=== PATIENT | male | born 2000 | race Caucasian/White ===

== ENCOUNTER 2022-06-17 11:21 | Emergency (ER) | payer BC, SELFPAY ==
[2022-06-17 11:28] VITALS: BP 131/82; PULSE 108; RESP 18; TEMP 37.3; O2SAT 96; BMI 27.1
--- NOTE | 2022-06-17 11:34 | ED.GENADULT ---
HPI - General Adult General Time Seen by Provider: 11:35 Date Seen: 06/17/22 Chief complaint: Abdominal Pain Stated complaint: Abdominal pain Time Seen by Provider: 06/17/22 11:25 Source: patient Mode of arrival: ambulatory Limitations: no limitations History of Present Illness HPI narrative: 22-year-old male who comes in today complaining of abdominal pain. Patient drinks alcohol daily but over the weekend increased alcohol intake. Two nights ago he started having vomiting, initially clear but then with some blood. That resolved yesterday but patient has had continued generalized abdominal pain. He describes this as cramping. It is worse when he moves or stands. He has had some lightheadedness as well. No black stools or diarrhea. Has not taken anything for his symptoms. Treatments prior to arrival: none Related Data Previous Rx's Medication Instructions Recorded sucralfate 1 gram tablet (Carafate) 1 g PO QID #30 tabs 06/17/22 Allergies Allergy/AdvReac Type Severity Reaction Status Date / Time No Known Drug Allergies Allergy Verified 06/17/22 11:31 Review of Systems Status of ROS: Reports: 10 or more systems reviewed and unremarkable except as noted in History and below PFSH PFS Social History Smoking Status: Never smoker Do you use any of these nicotine containing products: None How often do you have a drink containing alcohol: never AUDIT-C Alcohol total score: 0 Non-prescribed substance use: denies use Exam Narrative: Exam Narrative: General: Well-developed and well-nourished, no acute distress Head: Atraumatic and normocephalic Eyes: Pupils are equal reactive, extraocular motions intact, conjunctiva clear ENT: External nose and ears are normal, posterior pharynx without erythema or exudate Neck: No midline cervical tenderness, full spontaneous range of motion the neck, trachea midline, no adenopathy Heart: Regular rate and rhythm no murmurs or thrills Lungs: Clear to auscultation bilaterally without wheezes or crackles Abdomen: Soft, hyperactive bowel sounds with generalized tenderness worse in the epigastrium and left upper quadrant Musculoskeletal: No tenderness, deformity, or edema Neurologic: Awake, alert, and oriented x3, no gross focal neurologic deficits, cranial nerves intact as tested Psych: Mood and affect are appropriate Skin: No rashes Const: Vital Signs, click to edit/add: Vital Signs - 24 hr 06/17/22 11:28 Temperature 99.1 F Pulse Rate [Right Pulse Oximeter] 108 H Respiratory Rate 18 Blood Pressure [Ri ght Upper Arm] 131/82 Pulse Oximetry 96 Oxygen Delivery Me thod Room Air Course Course Hospital Course: Patient seen and examined, prior records reviewed. Differential diagnosis includes but not limited to gastritis, pancreatitis, gastric ulcer, enteritis, bowel obstruction. Patient presents with vomiting and generalized abdominal pain after heavy alcohol intake. On exam here, generalized abdominal tenderness with no right lower quadrant tenderness, no right upper quadrant tenderness. Tenderness is worse in the epigastrium and left upper quadrant. This likely represents gastritis, pancreatitis not excluded. Patient is mildly tachycardic which may be dehydration, with hematemesis concern for anemia. No known history of varices. CT scan of the abdomen and pelvis is ordered along with IV fluids and labs. Reevaluation(s) Reevaluation #1: Labs personally reviewed and interpreted by me did not demonstrate any acute abnormality other than minimally elevated bilirubin. CT scan personally reviewed and interpreted by me does not demonstrate any acute abnormality. Time: 12:52 Reevaluation #2: Radiology interpretation CT with peripancreatic stranding along the tail without ductal dilatation suggestive of possible pancreatitis. However, lipase is normal and no evidence for biliary obstruction. Possible mild pancreatitis but patient is tolerating oral intake, pain is controlled Toradol and stable for discharge. Time: 14:02 Vital Signs Vital signs: Initial Vital Signs Temperature 99.1 F 06/17/22 11:28 Temperature Source Temporal Artery Scan 06/17/22 11:28 Pulse Rate 108 H 06/17/22 11:28 Respiratory Rate 18 06/17/22 11:28 Blood Pressure 131/82 06/17/22 11:28 Blood Pressure Mean 98 06/17/22 11:28 Blood Pressure Position Sitting 06/17/22 11:28 Pulse Oximetry 96 06/17/22 11:28 Oxygen Delivery Method 06/17/22 11:28 Vital Signs Temperature 99.1 F 06/17/22 11:28 Pulse Rate 108 H 06/17/22 11:28 Respiratory Rate 18 06/17/22 11:28 Blood Pressure 131/82 06/17/22 11:28 Pulse Oximetry 96 06/17/22 11:28 Oxygen Delivery Method 06/17/22 11:28 Temperature 99.1 F 06/17/22 11:28 Pulse Rate 108 H 06/17/22 11:28 Respiratory Rate 18 06/17/22 11:28 Blood Pressure 131/82 06/17/22 11:28 Pulse Oximetry 96 06/17/22 11:28 Oxygen Delivery Method 06/17/22 11:28 Medical Decision Making Medical Records Medical records reviewed: Yes I reviewed the patient's medical records Lab Data Lab results reviewed: Yes I reviewed the patient's lab results Labs: Lab Results 06/17/22 06/17/22 06/17/22 Range/Units 12:10 12:10 12:10 WBC 10.99 (4.50-11.00) K/uL RBC 5.41 (4.30-5.90) m/uL Hgb 16.4 (13.5-17.5) gm/dL Hct 49.2 (37.0-53.0) % MCV 91 (80-100) fL MCH 30 (26-34) pg MCHC 33 (32-36) gm/dL RDW Coeff of Latia 13.1 (11.5-15.5) % Plt Count 163 (140-440) K/uL Neut % (Auto) 78.3 H (42.0-72.0) % Lymph % (Auto) 11.4 L (20-44) % [place] % (Auto) 9.2 (0.0-11.0) % Eos % (Auto) 0.5 (0.0-7.0) % Baso % (Auto) 0.1 (0.0-3.0) % Neut # (Auto) 8.60 H (1.7-7.0) K/uL Lymph # (Auto) 1.30 (0.90-2.90) K/uL [place] # (Auto) 1.00 H (0.00-0.90) K/UL Eos # (Auto) 0.06 (0.00-0.50) K/uL Baso # (Auto) 0.01 (0.00-0.30) K/uL Abs Immat Gran (auto) 0.05 (0.00-0.30) K/uL Imm/Tot Granulo (auto) 0.5 % INR 1.08 (0.91-1.10) Sodium 139 (135-149) mmol/L Potassium 3.6 (3.6-5.1) mmol/L Chloride 101 (96-114) mmol/L Carbon Dioxide 30 (20-32) mmol/L BUN 18 (5-24) mg/dL Creatinine 1.0 (0.5-1.5) mg/dL Estimated Creat Clear 128.26 Estimated GFR 110 ml/min Glucose 88 (60-115) mg/dL Calcium 9.7 (8.4-10.6) mg/dL Total Bilirubin 1.6 H (0.1-1.5) mg/dL Direct Bilirubin 0.1 (0.0-0.5) mg/dL AST 21 (12-35) U/L ALT 20 (4-50) U/L Alkaline Phosphatase 50 (40-150) U/L Total Protein 7.6 (6.0-8.3) g/dL Albumin 5.0 (3.3-5.0) g/dL Lipase 84 (23-300) U/L Imaging Data CT scan - abdomen: Attestation: I have reviewed the pertinent imaging results. My impression: No acute intra-abdominal findings Radiologist's impression: IMPRESSION: Findings suggestive of pancreatitis. Consider correlation with serum lipase, if not already performed. Discharge Plan Discharge Clinical Impression: Acute alcoholic gastritis with hemorrhage, Pancreatitis Patient Disposition: Home, Self-Care Condition: Stable Instructions: Gastritis (DC), Pancreatitis (ED) Additional Instructions: Take medications as prescribed. You can start taking Protonix daily as well. Avoid alcohol until your symptoms are resolved. You may notice black or dark colored stools in the next couple of days. This is normal and will resolve on its own. Activity Level: No Restrictions Discharge Diet: Regular Prescriptions: New sucralfate [Carafate] 1 gram tablet 1 g PO QID Qty: 30 0RF Follow Up/Referrals: Tristen Muller MD [Primary Care Provider] - Stand Alone Forms: [employer] Info Instructions
--- NOTE | 2022-06-17 11:45 | CRLHL7_ITS ---
For Patients: As a result of the Century Cures Act, medical imaging exams and procedure reports are released immediately into your electronic medical record. You may view this report before your referring provider. If you have questions, please contact your health care provider. INDICATION: Abdominal pain. TECHNIQUE: CT abdomen and pelvis acquired with 98 mL Isovue 370 IV contrast. Coronal and sagittal reformats were generated. COMPARISON: None. FINDINGS: Lower chest: Unremarkable. Liver: Unremarkable. Gallbladder and bile ducts: Unremarkable. No stones or inflammation. No biliary dilation. Spleen: Unremarkable. Pancreas: Peripancreatic stranding along the tail extends superiorly along the lesser curvature. No ductal dilation. Adrenal glands: Unremarkable. No nodules. Kidneys and Ureters: Unremarkable. No suspicious masses, stones, or hydronephrosis. Lymph Nodes and Retroperitoneum: Unremarkable. Vasculature: Unremarkable. GI tract: Unremarkable. Normal in caliber. Normal appendix. Peritoneum/Abdominal Wall: Trace free fluid in the pelvis. No free air. Pelvic Viscera: Unremarkable. Bladder: Unremarkable. Bones: Unremarkable for age. IMPRESSION: Findings suggestive of pancreatitis. Consider correlation with serum lipase, if not already performed. Please note that all CT scans at this facility use dose modulation, iterative reconstruction, and/or weight-based dosing when appropriate to reduce radiation dose to as low as reasonably achievable. Dictated by Henry Lucero MD @ 06/17/2022 1:42:16 PM (Electronically Signed)
[2022-06-17] MEDS: PANTOPRAZOLE SODIUM 40 MG INJ IVP (12:19)
[2022-06-17] MEDS: 0.9 % SODIUM CHLORIDE 1000 ml 1,000 ML IV (12:19)
[2022-06-17 12:20] LABS: Basophils Absolute Auto 0.01 K/uL (0.00-0.30); Basophils Percent Auto 0.1 % (0.0-3.0); Eosinophils Absolute Auto 0.06 K/uL (0.00-0.50); Eosinophils Percent Auto 0.5 % (0.0-7.0); Hematocrit 49.2 % (37.0-53.0); Hemoglobin* 16.4 gm/dL (13.5-17.5); Immature Granulocytes Abs Auto 0.05 K/uL (0.00-0.30); Immature Granulocytes Pct Auto 0.5 %; Lymphocytes Percent Auto 11.4 % (20-44); Mean Corpuscular HGB Conc 33 gm/dL (32-36); Mean Corpuscular Hemoglobin 30 pg (26-34); Mean Corpuscular Volume 91 fL (80-100); Monocytes Percent Auto 9.2 % (0.0-11.0); Neutrophils Percent Auto 78.3 % (42.0-72.0); Platelet Count* 163 K/uL (140-440); RDW Coefficient of Variation % 13.1 % (11.5-15.5); Red Blood Count 5.41 m/uL (4.30-5.90); White Blood Count* 10.99 K/uL (4.50-11.00)
[2022-06-17 12:27] LABS: Slide Review Reflex No
[2022-06-17 12:39] LABS: Chloride* 101 mmol/L (96-114); INR 1.08 (0.91-1.10); Potassium* 3.6 mmol/L (3.6-5.1); Prothrombin Time 14.6 Seconds; Sodium* 139 mmol/L (135-149)
[2022-06-17 12:41] LABS: Aspartate Amino Transferase* 21 U/L (12-35); Bilirubin Direct* 0.1 mg/dL (0.0-0.5); Bilirubin Total* 1.6 mg/dL (0.1-1.5); Blood Urea Nitrogen* 18 mg/dL (5-24); Carbon Dioxide* 30 mmol/L (20-32); Est. Creatinine Clearance* 128.26; Estimated Glomerular Filt Rate 110 ml/min; Total Protein* 7.6 g/dL (6.0-8.3)
[2022-06-17 12:42] LABS: Alanine Aminotransferase* 20 U/L (4-50); Alkaline Phosphatase* 50 U/L (40-150); Calcium* 9.7 mg/dL (8.4-10.6); Glucose* 88 mg/dL (60-115); Lipase* 84 U/L (23-300)
[2022-06-17 14:00] VITALS: BP 126/74; PULSE 90; RESP 18; O2SAT 99
[2022-06-17] MEDS: KETOROLAC 15 MG/ML inj IVP (14:27)
== END 2022-06-17 14:25 | disposition home or self-care (01) ==
PROVIDERS: Emergency Provider Family Medicine; PCP Family Medicine
DX: K29.21 Alcoholic gastritis with bleeding (principal); K85.20 Alcohol induced acute pancreatitis without necrosis or infection
CPT/HCPCS: 36415; 74177; 80048; 80076; 83690; 85025; 85610; 96361; 96374; 96375; 99284; C9113; J1885; J7030; Q9967

== ENCOUNTER 2024-06-05 14:54 | Emergency (ER) | payer OTHER, SELFPAY ==
[2024-06-05 14:58] VITALS: BP 143/82; PULSE 76; RESP 18; TEMP 37.2; O2SAT 98; BMI 28.5
--- NOTE | 2024-06-05 15:19 | ED.FEVER ---
HPI - Fever General Time Seen by Provider: 15:19 Date Seen: 06/05/24 Chief Complaint: Fever Stated Complaint: headache, bodyaches Time Seen by Provider: 06/05/24 15:22 Source: patient Mode of arrival: ambulatory Limitations: no limitations History of Present Illness HPI Narrative: Petey is a very pleasant 24-year-old who comes to the emergency room with complaints of ongoing headache and feeling ?out of it? for the past 6 days. Petey notes the onset of a headache mainly right-sided on ThursdayMay 31. Headache has continued and has been rather migratory now with pain behind his eyes and in the back of his head. This is associated with blurred vision and upper body aches. Petey states that when this 1st happened on May 31 and he almost had what felt like panic attacks at work. These have not happened since that time. He denies nausea vomiting diarrhea. He does not think he has had a fever but has had some hot flashes. He stopped alcohol use, does occasionally vape and uncommonly uses marijuana. No other drug use. Denies any recent injury. Cannot recall being bit by a tick and states that he has been working quite a bit and thus has not been able to get out and [place] or fish like he likes to. He currently works for [employer] here in [place]. Denies a history of migraines but his mother does have a history of headaches. He has tried ibuprofen at home it does not seem to help. Petey is mainly concerned about feeling out of it. He states that he has been zoning in an out. No shaking or seizure type activity. States that when he was out to supper 48 hours ago he could hear everybody talking but felt that he was in a fog. Related Data Home Medications ?Medication ?Instructions ?Recorded ?Confirmed albuterol sulfate 90 mcg/actuation 2 puff inhalation Q6H PRN 02/15/24 02/15/24 aerosol inhaler Previous Rx's ?Medication ?Instructions ?Recorded triamcinolone acetonide 0.1 % 1 applic topical BID #80 grams 02/16/24 topical cream Allergies Allergy/AdvReac Type Severity Reaction Status Date / Time No Known Drug Allergies Allergy Verified 02/16/24 11:42 Review of Systems Status of ROS Reports: 10 or more systems reviewed and unremarkable except as noted in History and below Const Reports: fatigue; Denies: fever Eyes Reports: blurry vision; Denies: seeing flashes ENMT Denies: throat pain, neck pain or nasal congestion Cardio Denies: swelling of feet/ankles or shortness of breath with exertion Resp Denies: shortness of breath, cough or wheezing GI Denies: abdominal pain, nausea, vomiting or diarrhea Denies: painful urination Musculo Denies: neck pain Integ/Breast Denies: rash or itching Neuro Reports: headache; Denies: numbness in extremities, weakness in extremities, lack of coordination or seizure-like activity Psych Reports: anxiety Endo Reports: fatigue Allergy/Immuno Denies: wheezing PFSH [facility] Medical History Seasonal allergies ?J30.2 - Other seasonal allergic rhinitis (ICD-10) Alcohol use ?Z78.9 - Other specified health status (ICD-10) Mild intermittent asthma ?J45.20 - Mild intermittent asthma, uncomplicated (ICD-10) Family History Mother Diabetes Social History Narrative: Single. No children. Smoking Status: Never smoker Do you use any of these nicotine containing products: None How often do you have a drink containing alcohol: never AUDIT-C Alcohol total score: 0 Non-prescribed substance use: denies use Little interest or pleasure in doing things: not at all Feeling down, depressed, or hopeless: not at all Exam Narrative Exam Narrative: Petey is alert and oriented. He is not in any acute distress. His neck is with full range of motion and there is no guarding. He does have circles under his eyes. EOM is full and pupils equal round and reactive. No photophobia. TMs without erythema or fluid. Oral cavity with moist mucous membranes. Neck is supple. Heart with regular rate and rhythm rhythm without murmur or rub. Lungs are clear bilaterally. Abdomen soft. Moving all extremities. No evidence of unusual rash on trunk. Const Vital Signs, click to edit/add: Vital Signs - 24 hr 06/05/24 14:58 Temperature 98.9 F Pulse Rate [Pulse Oximeter] 76 Respiratory Rate 18 Blood Pressure [Right Upper Arm] 143/82 H Pulse Oximetry 98 Oxygen Delivery Method Room Air Documenting provider has reviewed patient's vital signs: yes Course Course ED Course: Differential diagnosis includes but is not limited to COVID, strep, mono, West Nile, tick-borne illness, other virus. At this time patient is receptive to treatment with Benadryl and Reglan as ibuprofen has not helped him at home. Will check the aforementioned illnesses as well as do a CBC and comprehensive panel and CRP and urinalysis. No evidence of meningitis as he has full range of motion of his neck and no meningeal signs. Reevaluation(s) Reevaluation #1: Patient noted to have reassuring laboratory values. Still pending at this time will be West Nile and tick panel. At this time given patient's lab findings, exam I do not feel that we should proceed with CT. Reevaluation #2: Patient noted resolution of his headache. Following administration of Benadryl and Reglan he slept quite soundly. Vital Signs Vital signs: Initial Vital Signs Temperature 98.9 F 06/05/24 14:58 Temperature Source Temporal Artery Scan 06/05/24 14:58 Pulse Rate 76 06/05/24 14:58 Pulse Rhythm Regular 06/05/24 14:58 Respiratory Rate 18 06/05/24 14:58 Blood Pressure 143/82 H 06/05/24 14:58 Blood Pressure Mean 102 06/05/24 14:58 Blood Pressure Position Sitting 06/05/24 14:58 Pulse Oximetry 98 06/05/24 14:58 Oxygen Delivery Method Room Air 06/05/24 14:58 Vital Signs Temperature 98.9 F 06/05/24 14:58 Pulse Rate 76 06/05/24 14:58 Respiratory Rate 18 06/05/24 14:58 Blood Pressure 143/82 H 06/05/24 14:58 Pulse Oximetry 98 06/05/24 14:58 Oxygen Delivery Method Room Air 06/05/24 14:58 Temperature 98.9 F 06/05/24 14:58 Pulse Rate 76 06/05/24 14:58 Respiratory Rate 18 06/05/24 14:58 Blood Pressure 143/82 H 06/05/24 14:58 Pulse Oximetry 98 06/05/24 14:58 Oxygen Delivery Method Room Air 06/05/24 14:58 Medications Administered Medications: Discontinued Medications Generic Name Dose Route Start Last Admin Trade Name Freq PRN Reason Stop Dose Admin Diphenhydramine HCl 50 mg 06/05/24 15:46 06/05/24 16:00 Diphenhydramine 50 Mg/Ml Inj IVP 06/05/24 15:47 50 mg ONCE ONE Administration Metoclopramide HCl 10 mg/ 102 mls @ 306 mls/hr 06/05/24 15:46 06/05/24 17:03 Sodium Chloride IVPB 06/05/24 15:47 Infused ONCE ONE Infusion MDM - Fever MDM Narrative Medical decision making narrative: 1. Headache-I do believe the headache is likely secondary to viral type illnesses patient reports feeling ?out of it? and having some hot flashes. He does not have any respiratory symptoms and he has tested negative for COVID influenza RSV and strep as well as mono. At this time his headache has resolved with Benadryl and Reglan. He does stay with his girlfriend and there been no reports of seizure-like activity. 2. Disposition-currently pending or West Nile and tick-borne panel. He will be called if these become positive. In the meantime rest. He will not be going to work tonight. I have asked Petey to return if he has continued symptoms, worsening symptoms, onset of new symptoms. At this time I do discuss with him the fact that I would not proceed with CT. He has no meningeal signs, has no report of trauma, is not on any blood thinners and reports body aches along with his symptoms. If however, he has persistent or worsening symptoms or the onset of new symptoms I would consider head CT. Medical Records Attestation: I reviewed the patient's medical records. Lab Data Attestation: I reviewed the patient's lab results. Labs: Lab Results 06/05/24 Range/Units 15:50 WBC 6.44 (4.50-11.00) K/uL RBC 5.65 (4.30-5.90) m/uL Hgb 16.7 (13.5-17.5) gm/dL Hct 50.2 (37.0-53.0) % MCV 89 (80-100) fL MCH 30 (26-34) pg MCHC 33 (32-36) gm/dL RDW Coeff of [place]ia 12.5 (11.5-15.5) % Plt Count 177 (140-440) K/uL Neut % (Auto) 55.2 (42.0-72.0) % Lymph % (Auto) 34.5 (20-44) % [place] % (Auto) 8.5 (0.0-11.0) % Eos % (Auto) 1.4 (0.0-7.0) % Baso % (Auto) 0.2 (0.0-3.0) % Neut # (Auto) 3.56 (1.7-7.0) K/uL Lymph # (Auto) 2.22 (0.90-2.90) K/uL [place] # (Auto) 0.50 (0.00-0.90) K/UL Eos # (Auto) 0.09 (0.00-0.50) K/uL Baso # (Auto) 0.01 (0.00-0.30) K/uL Abs Immat Gran (auto) 0.01 (0.00-0.30) K/uL Imm/Tot Granulo (auto) 0.2 % Sodium 136 (135-149) mmol/L Potassium 4.1 (3.6-5.1) mmol/L Chloride 102 (96-114) mmol/L Carbon Dioxide 27 (20-32) mmol/L Anion Gap 7 (7-15) mEq/L BUN 17 (5-24) mg/dL Creatinine 1.0 (0.5-1.5) mg/dL Estimated Creat Clear 126.10 Estimated GFR 108 ml/min Glucose 86 (60-115) mg/dL Calcium 9.5 (8.4-10.6) mg/dL Total Bilirubin 0.5 (0.1-1.5) mg/dL AST 28 (12-35) U/L ALT 25 (4-50) U/L Alkaline Phosphatase 57 (40-150) U/L C-Reactive Protein < 0.5 L (0.5-1.0) mg/dL Total Protein 6.5 (6.0-8.3) g/dL Albumin 4.7 (3.3-5.0) g/dL SARS-CoV-2 (PCR) Negative SARS-CoV-2 (Negative) Monoscreen Negative (Negative) Influenza Type A (PCR) Negative PCR FLU A (Negative) Influenza Type B (PCR) Negative PCR FLU B (Negative) RSV (PCR) Negative PCR RSV (Negative) Group A Strep DNA NOT DETECTED (Not Detectd) Discharge Plan Discharge Clinical Impression: Headache Qualifiers: Headache type: unspecified Headache chronicity pattern: unspecified pattern Intractability: not intractable Qualified Code(s): R51.9 - Headache, unspecified Additional Instructions: At this time you have tested negative for COVID, RSV, influenza, strep and mono. West Nile and the tick borne panel is still pending and we will call you if that is positive. Your labs were reassuring. I suggest rest and pushing fluids. If you suddenly developed high fever and have worsening symptoms please return to the emergency room. Activity Level: No Restrictions Discharge Diet: Regular Prescriptions: No Action albuterol sulfate 90 mcg/actuation HFA aerosol inhaler 2 puff inhalation Q6H PRN triamcinolone acetonide 0.1 % cream 1 applic topical BID Qty: 80 0RF Follow Up/Referrals: Tristen Muller MD [Primary Care Provider] - Stand Alone Forms: [employer] Info Instructions
[2024-06-05] MEDS: METOCLOPRAMIDE HCL 10 MG in 0.9 % SODIUM CHLORIDE 100 ml 100 ML 306 MG IVPB (15:59)
[2024-06-05] MEDS: diphenhydrAMINE 50 MG/ML inj IVP (16:00)
[2024-06-05 16:30] LABS: C Reactive Protein* < 0.5 mg/dL (0.5-1.0)
[2024-06-05 16:31] LABS: Strep A DNA Probe* NOT DETECTED (Not Detectd)
[2024-06-05 16:35] LABS: Mono Screen* Negative (Negative)
[2024-06-05 16:44] LABS: PCR FLU A Negative PCR FLU A (Negative); PCR FLU B Negative PCR FLU B (Negative); PCR RSV Negative PCR RSV (Negative); SARS PCR* Negative SARS-CoV-2 (Negative)
[2024-06-05 17:07] LABS: Basophils Absolute Auto 0.01 K/uL (0.00-0.30); Basophils Percent Auto 0.2 % (0.0-3.0); Eosinophils Absolute Auto 0.09 K/uL (0.00-0.50); Eosinophils Percent Auto 1.4 % (0.0-7.0); Hematocrit 50.2 % (37.0-53.0); Hemoglobin* 16.7 gm/dL (13.5-17.5); Immature Granulocytes Abs Auto 0.01 K/uL (0.00-0.30); Immature Granulocytes Pct Auto 0.2 %; Lymphocytes Absolute Auto 2.22 K/uL (0.90-2.90); Lymphocytes Percent Auto 34.5 % (20-44); Mean Corpuscular HGB Conc 33 gm/dL (32-36); Mean Corpuscular Hemoglobin 30 pg (26-34); Mean Corpuscular Volume 89 fL (80-100); Monocytes Percent Auto 8.5 % (0.0-11.0); Neutrophils Absolute Auto 3.56 K/uL (1.7-7.0); Neutrophils Percent Auto 55.2 % (42.0-72.0); Platelet Count* 177 K/uL (140-440); RDW Coefficient of Variation % 12.5 % (11.5-15.5); Red Blood Count 5.65 m/uL (4.30-5.90); White Blood Count* 6.44 K/uL (4.50-11.00)
[2024-06-05 17:09] LABS: Albumin* 4.7 g/dL (3.3-5.0); Chloride* 102 mmol/L (96-114); Slide Review Reflex No
[2024-06-05 17:10] LABS: Potassium* 4.1 mmol/L (3.6-5.1); Sodium* 136 mmol/L (135-149)
[2024-06-05 17:12] LABS: Alkaline Phosphatase* 57 U/L (40-150); Anion Gap 7 mEq/L (7-15); Aspartate Amino Transferase* 28 U/L (12-35); Bilirubin Total* 0.5 mg/dL (0.1-1.5); Blood Urea Nitrogen* 17 mg/dL (5-24); Carbon Dioxide* 27 mmol/L (20-32); Estimated Glomerular Filt Rate 108 ml/min; Total Protein* 6.5 g/dL (6.0-8.3)
[2024-06-05 17:13] LABS: Alanine Aminotransferase* 25 U/L (4-50); Calcium* 9.5 mg/dL (8.4-10.6); Glucose* 86 mg/dL (60-115)
[2024-06-07 13:36] LABS: Lyme ELISA Reflex 0.19 IV (<=0.90)
[2024-06-08 16:30] LABS: Anaplasma phagocyt PCR Not Detected; Babesia microti by PCR Not Detected; Babesia species by PCR Not Detected; Ehrlichia chaffeensis by PCR Not Detected; Ehrlichia ewingii/canis by PCR Not Detected; Ehrlichia muris-like by PCR Not Detected
== END 2024-06-05 17:48 | disposition home or self-care (01) ==
PROVIDERS: Emergency Provider Family Medicine; PCP Family Medicine
DX: R51.9 Headache, unspecified (principal)
CPT/HCPCS: 36415; 80053; 81001; 85025; 86140; 86308; 86618; 86789; 87468; 87469; 87484; 87631; 87651; 87798; 96365; 96375; 99283; 99284; J1200; J2765